=== PATIENT | female | born 1950 | race African-American/Black ===

== ENCOUNTER 2016-11-20 07:51 | Day surgery (SDC) | payer MEDICARE, BC ==
[~2016-11-20 07:51] MED LIST: EPINEPHRINE INJ/PF 1 MG/1 ML AMPULE ONE; KETOROLAC TROMETHAMINE 0.45% 4 DROP/0.4 ML DROPERETTE OS PRN; LIDOCAINE 1% INJ-PF (10 MG/ML) 30 ML SDV ONE
[2016-11-20] MEDS: TETRACAINE HCL 0.5% OPH SOLN 2 ML OS PRN ×3 (08:08→08:47)
[2016-11-20] MEDS: TROPICAMIDE 1% OPH SOLN 3 ML OS PRN ×3 (08:09→08:32)
[2016-11-20] MEDS: CYCLOPENTOLATE 0.2%/PHENYLEPHRINE 1% OPH SOLN 2 ML OS PRN ×3 (08:09→08:32)
[2016-11-20] MEDS: BESIFLOXACIN HCL 0.6% OPH SUSP 5 ML BOTTLE OS PRN ×4 (08:10→09:17)
[2016-11-20] MEDS ORDERED: MIDAZOLAM 2 MG/2 ML INJ ONE (08:34)
[2016-11-20] MEDS ORDERED: FENTANYL CITRATE INJ/PF 100 MCG/2 ML AMPUL ONE (08:34)
[2016-11-20] MEDS: CHONDR SU A NA/HYALUR INTRAOC KIT (SURGICARE) ONE ×2 (09:09)
--- NOTE | 2016-11-20 12:23 | [facility] OPERATIVE REPORT E ---
[facility] Operative Report NAME: LAURIE MCKEON AGE: 65Y DATE OF SURGERY: 11/20/2016 ROOM: PREOPERATIVE DIAGNOSIS: Cataract, left eye. POSTOPERATIVE DIAGNOSIS: Cataract, left eye. OPERATION: Cataract extraction with intraocular lens implant of the left eye. SURGEON: WANDA RAMIREZ M.D. ANESTHESIA: Topical. PROCEDURE: After obtaining appropriate consent, the patient's left eye was prepped and draped in sterile fashion as well as the surgeon in a sterile manner and cataract surgery was started. First a paracentesis blade was used to make a small side-port incision. Viscoelastic was used to inflate the anterior chamber. Next a 2.4 mm incision was made with the paracentesis blade. A continuous capsulorrhexis incision was made using a cystotome and Utrata forceps. Following this hydrodissection was carried out to make the lens fully loose and mobile and it was rotated 90 degrees. Following this, a rnyguo-otf-vzgulmk technique was used to phacoemulsify the lens with a CDE of 6.85. The remaining cortex was removed with irrigation/aspiration. Provisc was instilled into the capsular bag to inflate the bag. A SN60WF, 24.0 diopter lens was placed. The remaining viscoelastic material was removed with irrigation/aspiration. Following this, a 10-0 nylon suture was used to close the incision and it was found to be watertight. Vigamox was instilled in the eye and a protective shield was placed over the eye. The patient returned to the postoperative recovery in stable condition. DICTATING PHYSICIAN: WANDA RAMIREZ M.D. [id number] [id number] Y#: 2013 1219 ID: [id number] JOB#: [id number] ACCT: [id number] cc:WANDA RAMIREZ M.D. >
--- NOTE | 2016-11-20 12:24 | [facility] DISCHARGE SUMMARY E ---
[facility] Discharge Summary NAME: LAURIE MCKEON AGE: 65Y ADMITTED: 11/20/2016 DISCHARGED: 11/20/2016 HOSPITAL COURSE: This is a 65-year-old female who underwent cataract extraction of her left eye. DIAGNOSIS: Cataract, left eye. INDICATIONS: She underwent surgery because she was having difficulty driving at night secondary to glare from headlights. DISCHARGE INSTRUCTIONS: She should to be on a regular diet. No bending at her waist. No heavy lifting. She should use her Besivance, Ilevro, and Durezol at 3 p.m. and 8 p.m. and sleep with a rigid shield. I will see her for her 1 day postoperative tomorrow. DICTATING PHYSICIAN: WANDA RAMIREZ M.D. [id number] [id number] Y#: 2013 1219 ID: [id number] JOB#: [id number] ACCT: [id number] cc:WANDA RAMIREZ M.D. >
== END 2016-11-20 10:13 | disposition home or self-care (01) ==
LOC: SC 07:51
PROVIDERS: ATTEND Internal Medicine
PROC: 08RK3JZ Replacement of Left Lens with Synthetic Substitute, Percutaneous Approach (ICD-10-PCS; principal; 2016-11-20 09:00)
DX: H25.813 Combined forms of age-related cataract, bilateral (principal); H40.013 Open angle with borderline findings, low risk, bilateral; M19.90 Unspecified osteoarthritis, unspecified site; M81.0 Age-related osteoporosis without current pathological fracture; Z87.891 Personal history of nicotine dependence; Z88.5 Allergy status to narcotic agent; Z79.899 Other long term (current) drug therapy; Z79.82 Long term (current) use of aspirin; Z79.1 Long term (current) use of non-steroidal anti-inflammatories (NSAID)
CPT/HCPCS: 66984; V2632; J2250; J3490 ×2; A9270; J0171; J3010; 142

== ENCOUNTER 2016-12-13 06:31 | Day surgery (SDC) | payer MEDICARE, BC ==
[~2016-12-13 06:31] MED LIST changes: -EPINEPHRINE INJ/PF 1 MG/1 ML AMPULE ONE; -KETOROLAC TROMETHAMINE 0.45% 4 DROP/0.4 ML DROPERETTE OS PRN; -LIDOCAINE 1% INJ-PF (10 MG/ML) 30 ML SDV ONE; +MIDAZOLAM 2 MG/2 ML INJ ONE
[2016-12-13] MEDS: CYCLOPENTOLATE 0.2%/PHENYLEPHRINE 1% OPH SOLN 2 ML OD PRN ×3 (06:50→07:11)
[2016-12-13] MEDS: TROPICAMIDE 1% OPH SOLN 3 ML OD PRN ×3 (06:50→07:11)
[2016-12-13] MEDS: BESIFLOXACIN HCL 0.6% OPH SUSP 5 ML BOTTLE OD PRN ×4 (06:50→07:59)
[2016-12-13] MEDS: TETRACAINE HCL 0.5% OPH SOLN 2 ML OD PRN ×3 (06:51→07:33)
[2016-12-13] MEDS: KETOROLAC TROMETHAMINE 0.45% 4 DROP/0.4 ML DROPERETTE OD PRN ×2 (06:51→08:25)
[2016-12-13] MEDS ORDERED: EPINEPHRINE INJ/PF 1 MG/1 ML AMPULE ONE (07:13)
[2016-12-13] MEDS ORDERED: LIDOCAINE 1% INJ-PF (10 MG/ML) 30 ML SDV ONE (07:14)
[2016-12-13] MEDS ORDERED: CHONDR SU A NA/HYALUR INTRAOC KIT (SURGICARE) ONE (07:14)
--- NOTE | 2016-12-13 19:48 | [facility] OPERATIVE REPORT E ---
[facility] Operative Report NAME: LUARIE MCKEON AGE: 66Y DATE OF SURGERY: 12/13/2016 ROOM: PREOPERATIVE DIAGNOSIS: CATARACT, RIGHT EYE. POSTOPERATIVE DIAGNOSIS: CATARACT, RIGHT EYE. OPERATION: Cataract extraction with intraocular lens implant of the right eye. SURGEON: WANDA RAMIREZ M.D. ANESTHESIA: Topical. PROCEDURE: After obtaining appropriate consent, the patient's right eye was prepped and draped in sterile fashion as well as the surgeon in a sterile manner and cataract surgery was started. First a paracentesis blade was used to make a small side-port incision. Viscoelastic was used to inflate the anterior chamber. Next a 2.4 mm incision was made with the paracentesis blade. A continuous capsulorrhexis incision was made using a cystotome and Utrata forceps. Following this hydrodissection was carried out to make the lens fully loose and mobile and it was rotated 90 degrees. Following this, a oixfib-vlq-aycafmd technique was used to phacoemulsify the lens with a CDE of 6.34. The remaining cortex was removed with irrigation/aspiration. Provisc was instilled into the capsular bag to inflate the bag. A SN60WF, 22.0 diopter lens was placed. The remaining viscoelastic material was removed with irrigation/aspiration. Following this, a 10-0 nylon suture was used to close the incision and it was found to be watertight. Vigamox was instilled in the eye and a protective shield was placed over the eye. The patient returned to the postoperative recovery in stable condition. DICTATING PHYSICIAN: WANDA RAMIREZ M.D. [id number] PHY#: [id number] ID: [id number] JOB#: [id number] ACCT: [id number] cc:WANDA RAMIREZ M.D. >
--- NOTE | 2016-12-13 19:51 | DISCHARGE SUMMARY E ---
Discharge Summary NAME: LAURIE MCKEON : 1950 AGE: 66Y ADMITTED: 12/13/2016 DISCHARGED: 12/13/2016 This is a 66-year-old female who underwent cataract extraction of the right eye. DIAGNOSIS: Cataract, right eye. She underwent surgery because she was having trouble seeing road signs. DISCHARGE INSTRUCTIONS: She is to be on a regular diet. No bending at her waist, no heavy lifting. She is to use Besivance, Ilevro, and Durezol at 3:00 p.m. and 8:00 p.m., and sleep with a rigid shield. I will see her for her one day postoperative tomorrow. DICTATING PHYSICIAN: WANDA RAMIREZ M.D. [id number] PHY#: [id number] ID: [id number] JOB#: [id number] ACCT: [id number] cc:WANDA RAMIREZ M.D. >
== END 2016-12-13 08:43 | disposition home or self-care (01) ==
LOC: SC 06:31
PROVIDERS: ATTEND Internal Medicine
PROC: 08RJ3JZ Replacement of Right Lens with Synthetic Substitute, Percutaneous Approach (ICD-10-PCS; principal; 2016-12-13 07:30)
DX: H25.811 Combined forms of age-related cataract, right eye (principal); M19.90 Unspecified osteoarthritis, unspecified site; H40.013 Open angle with borderline findings, low risk, bilateral; Z96.659 Presence of unspecified artificial knee joint; Z79.1 Long term (current) use of non-steroidal anti-inflammatories (NSAID)
CPT/HCPCS: 66984; V2632; J2250; J3490 ×2; A9270; J0171; 142

== ENCOUNTER → 2018-03-14 | Outpatient (CLI) | payer MEDICARE, BC ==
--- NOTE | 2018-03-17 10:42 | WOMENS IMAGING REPORT ---
EXAM DESCRIPTION: 3D SCREENING MAMMO BILAT COMPLETED DATE/TIME: 03/17/2018 8:44 am REASON FOR STUDY: BILATERAL MAMMO SCREENING 3D/Z12.31 Z12.31 ENCNTR SCREEN MAMMOGRAM FOR MALIGNANT NEOPLASM OF NERI COMPARISON: Multiple since 2008 TECHNIQUE: Standard craniocaudal and mediolateral oblique views of each breast recorded using digita l acquisition and breast tomosynthesis. LIMITATIONS: None. FINDINGS: RIGHT BREAST MASSES: No suspicious masses. CALCIFICATIONS: No new or suspicious calcifications. ARCHITECTURAL DISTORTION: None. DEVELOPING DENSITY: None. ASYMMETRY: None noted. OTHER: No other significant findings. LEFT BREAST MASSES: In the left mid breast central retroareolar region, a 1.5 cm well-circumscribed mammographic nodule is present likely a breast parenchymal cyst. This requires further evaluation with breast sharri gnostic ultrasound. CALCIFICATIONS: In the far deep lateral left breast 2 to 3 o'clock position 7 cm from the nipple, new calcifications are present which require follow-up with exaggerated craniocaudad view 90 mediolater al view cone compression views. ARCHITECTURAL DISTORTION: None. DEVELOPING DENSITY: None. ASYMMETRY: None noted. OTHER: No other significant findings. Read with the assistance of CAD. .[facility] - R2 Cenova Version 1.3 .[facility] - R2 Cenova Version 1.3 .[facility] - R2 Cenova Version 2.4 .[facility] - R2 Cenova Version 2.4 .[facility] - R2 Management Accountant Version 9.2 IMPRESSION: No mammographic or tomosynthesis evidence for malignancy right breast. Calcifications left breast laterally for which additional magnification compression views are recomme nded and left breast 90 mediolateral view. Well-circumscribed low-density mammographic nodule left breast centrally for which ultrasound is terry mmended for followup BREAST DENSITY: b. There are scattered areas of fibroglandular density. BIRAD: 0 Incomplete: Needs Additional Imaging Evaluation and/or prior Mammograms for Comparison. RECOMMENDATION: RECOMMENDED FOLLOW-UP: Left breast ultrasound, left breast diagnostic mammograms The patient will be contacted for additional imaging. COMMENT: The patient has been notified of the results by letter per [place] requirements. Additional no tification policies are in place for contacting patient with suspicious or incomplete findings. Quality ID #225: The [employer] recommends an annual screening mammogram for women aged 40 years or over. This facility utilizes a reminder system to ensure that all patients receive reminder letters, and/or direct phone calls for appointments. This includes reminders for routine scr eening mammograms, diagnostic mammograms, or other Breast Imaging Interventions when appropriate. Th is patient will be placed in the appropriate reminder system. The [employer] (ACR) has developed recommendations for screening MRI of the breast s in certain patient populations, to be used in conjunction with mammography. Breast MRI surveillanc e may be appropriate for women with more than 20% lifetime risk of developing breast cancer as deter mined by genetic testing, significant family history of the disease, or history of mantle radiation f or Hodgkins Disease. ACR Practice Guidelines 2008. DBT Technology DBT is a type of tomographic mammography. With conventional mammography, overlapping breast tissue ma y make lesions difficult to detect, even with good compression. DBT uses an x-ray tube that rotates a round the breast, taking images at different angles. These images are then combined to create thin sl ices of the breast that the radiologist can view as a 3D reconstruction. The [employer]ika unit can perform full-field digital mammograms (2D imaging); or DBT (3D imaging); or both, in a combination mode that quickly performs both the mammogram and the tomosynthesis scan while the breast is still compressed. PQRS 6045F: Fluoroscopic imaging is not utilized for breast tomosynthesis. TECHNICAL DOCUMENTATION: FINDING NUMBER: (1) ASSESSMENT: (1) JOB ID: [id number] [employer]- All Rights Reserved Reading location - IP/workstation name: [email or web address]
== END ==
LOC: WI 14:00
PROVIDERS: ATTEND Specialist
DX: Z12.31 Encounter for screening mammogram for malignant neoplasm of breast (principal)
CPT/HCPCS: 77063; 77067

== ENCOUNTER → 2018-03-31 | Outpatient (CLI) | payer MEDICARE, BC ==
--- NOTE | 2018-03-31 17:08 | WOMENS IMAGING REPORT ---
EXAM DESCRIPTION: LEFT DIAGNOSTIC MAMMO W/CAD; U/S BREAST UNILAT LIMITED COMPLETED DATE/TIME: 03/31/2018 9:31 am; 03/31/2018 9:19 am REASON FOR STUDY: LLIQ;N63.24; LEFT BREAST U/S; N63.24 N63.21 UNSPECIFIED LUMP IN THE LEFT BREAST, UPPER OUTER QUAD N63.24 UNSPECIFIED LUMP IN THE LEFT BREAST, LOWER INNER QUAD COMPARISON: Multiple since 2008 TECHNIQUE: Standard craniocaudal and mediolateral oblique images of the breast recorded with digital acquisition. Additional left breast compression magnification views in the MLO, 90 mediolateral, craniocaudad and exaggerated craniocaudad orientations CT. Additional left breast ultrasound. LIMITATIONS: None. FINDINGS: BREAST: Left MASSES: No persistent mass in the deep central retroareolar region on today's follow-up cone compress ion magnification views CALCIFICATIONS: Dense benign appearing calcifications in the far left lateral deep breast just ventra l to the pectoralis muscle. It ARCHITECTURAL DISTORTION: None. DEVELOPING DENSITY: None. ASYMMETRY: None noted. OTHER: No other significant findings. Read with the assistance of CAD. .[facility] - R2 Cenova Version 1.3 .[facility] Imaging - R2 Cenova Version 1.3 .[facility] Imaging - R2 Cenova Version 2.4 .[facility] [place] R2 Cenova Version 2.4 .[facility] - R2 Clearance Coordinator Version 9.2 Left breast ultrasound: Ultrasound of the left breast central retroareolar and upper half was performed. No discrete cystic or solid lesions. No dilated ducts. No worrisome acoustic absorption. No focal findings. IMPRESSION: No mammographic or sonographic evidence for malignancy left breast BREAST DENSITY: c. The breasts are heterogeneously dense, which may obscure small masses. BIRAD: 2 Benign findings. RECOMMENDATION: RECOMMENDED FOLLOW UP: Please continue yearly bilateral screening tomosynthesis in A ust 2019 SPECIFIC INTERVENTION/IMAGING/CONSULTATION RECOMMENDED:No additional intervention/ imaging/consultati on needed at this time. COMMUNICATION:Patient notified by letter COMMENT: The patient has been notified of the results by letter per MQSA requirements. Additional no tification policies are in place for contacting patient with suspicious or incomplete findings. Quality ID #225: The [employer] recommends an annual screening mammogram for women aged 40 years or over. This facility utilizes a reminder system to ensure that all patients receive reminder letters, and/or direct phone calls for appointments. This includes reminders for routine scr eening mammograms, diagnostic mammograms, or other Breast Imaging Interventions when appropriate. Th is patient will be placed in the appropriate reminder system. The [employer] (ACR) has developed recommendations for screening MRI of the breast s in certain patient populations, to be used in conjunction with mammography. Breast MRI surveillanc e may be appropriate for women with more than 20% lifetime risk of developing breast cancer as deter mined by genetic testing, significant family history of the disease, or history of mantle radiation f or Hodgkins Disease. ACR Practice Guidelines 2008. TECHNICAL DOCUMENTATION: FINDING NUMBER: (1) ASSESSMENT: (1) JOB ID: [id number] [employer]- All Rights Reserved Reading location - IP/workstation name: [facility]-[email or web address]
--- NOTE | 2018-03-31 17:08 | WOMENS IMAGING REPORT ---
EXAM DESCRIPTION: LEFT DIAGNOSTIC MAMMO W/CAD; U/S BREAST UNILAT LIMITED COMPLETED DATE/TIME: 03/31/2018 9:31 am; 03/31/2018 9:19 am REASON FOR STUDY: LLIQ;N63.24; LEFT BREAST U/S; N63.24 N63.21 UNSPECIFIED LUMP IN THE LEFT BREAST, UPPER OUTER QUAD N63.24 UNSPECIFIED LUMP IN THE LEFT BREAST, LOWER INNER QUAD COMPARISON: Multiple since 2008 TECHNIQUE: Standard craniocaudal and mediolateral oblique images of the breast recorded with digital acquisition. Additional left breast compression magnification views in the MLO, 90 mediolateral, craniocaudad and exaggerated craniocaudad orientations CT. Additional left breast ultrasound. LIMITATIONS: None. FINDINGS: BREAST: Left MASSES: No persistent mass in the deep central retroareolar region on today's follow-up cone compress ion magnification views CALCIFICATIONS: Dense benign appearing calcifications in the far left lateral deep breast just ventra l to the pectoralis muscle. It ARCHITECTURAL DISTORTION: None. DEVELOPING DENSITY: None. ASYMMETRY: None noted. OTHER: No other significant findings. Read with the assistance of CAD. .[facility] - R2 Cenova Version 1.3 .[facility] Imaging - R2 Cenova Version 1.3 .[facility] Imaging - R2 Cenova Version 2.4 .[facility] - R2 Cenova Version 2.4 .[facility] - R2 Feeder Driver Version 9.2 Left breast ultrasound: Ultrasound of the left breast central retroareolar and upper half was performed. No discrete cystic or solid lesions. No dilated ducts. No worrisome acoustic absorption. No focal findings. IMPRESSION: No mammographic or sonographic evidence for malignancy left breast BREAST DENSITY: c. The breasts are heterogeneously dense, which may obscure small masses. BIRAD: 2 Benign findings. RECOMMENDATION: RECOMMENDED FOLLOW UP: Please continue yearly bilateral screening tomosynthesis in A ust 2019 SPECIFIC INTERVENTION/IMAGING/CONSULTATION RECOMMENDED:No additional intervention/ imaging/consultati on needed at this time. COMMUNICATION:Patient notified by letter COMMENT: The patient has been notified of the results by letter per MQSA requirements. Additional no tification policies are in place for contacting patient with suspicious or incomplete findings. Quality ID #225: The [employer] recommends an annual screening mammogram for women aged 40 years or over. This facility utilizes a reminder system to ensure that all patients receive reminder letters, and/or direct phone calls for appointments. This includes reminders for routine scr eening mammograms, diagnostic mammograms, or other Breast Imaging Interventions when appropriate. Th is patient will be placed in the appropriate reminder system. The [employer] (ACR) has developed recommendations for screening MRI of the breast s in certain patient populations, to be used in conjunction with mammography. Breast MRI surveillanc e may be appropriate for women with more than 20% lifetime risk of developing breast cancer as deter mined by genetic testing, significant family history of the disease, or history of mantle radiation f or Hodgkins Disease. ACR Practice Guidelines 2008. TECHNICAL DOCUMENTATION: FINDING NUMBER: (1) ASSESSMENT: (1) JOB ID: [id number] [employer]- All Rights Reserved Reading location - IP/workstation name: [facility]-[email or web address]
== END ==
LOC: WI 08:19
PROVIDERS: ATTEND Specialist
DX: N63.42 Unspecified lump in left breast, subareolar (principal)
CPT/HCPCS: 76642

== ENCOUNTER 2019-01-26 09:44 | Emergency (ER) | payer MEDICARE, BC ==
--- NOTE | 2019-01-26 10:04 | ER Document Report ---
ED Medical Screen (RME) - General Chief Complaint: Chest Pain Stated Complaint: CHEST PAIN Time Seen by Provider: 01/26/19 10:01 Primary Care Provider: JUDY AYALA MD [Primary Care Provider] - Follow up as needed TRAVEL OUTSIDE OF THE [place] IN LAST 30 DAYS: No - HPI Notes: 01/26/19 10:03 Patient is a 68-year-old female with history of osteoporosis and on Boniva who presents complaining of right-sided chest pain that is been present for the past 3 weeks. Patient states that the pain is still lingering in that area and does not radiate. She is able to perform her ADLs without difficulty. She is eating and drinking without difficulty. She is urinating normally and having normal bowel movements. Denies drug allergies. No significant cardiopulmonary medical history. Denies any prolonged immobilization, distance travel, recent surgery/trauma, personal cancer history, smoking, or previous DVT/PE. Denies SEVILLA, fever, neck pain, URI, SOB, Abd pain, n/v/d, dysuria, back pain, or rash. I have treated and performed a rapid initial assessment of this patient. A comprehensive ED assessment and evaluation of the patient, analysis of test results and completion of medical decision making process will be conducted by additional ED providers. PHYSICAL EXAMINATION: GENERAL: Well-appearing, well-nourished and in no acute distress. A&Ox4. Answers questions appropriately. LUNGS: Breath sounds clear to auscultation bilaterally and equal. No wheezes rales or rhonchi. HEART: Regular rate and rhythm without murmurs, rubs, gallops. Extremities: No cyanosis, clubbing, or edema b/l. No lower extremity asymmetry. Jerrica negative bilaterally. NEUROLOGICAL: Normal speech, normal gait. PSYCH: Normal mood, normal affect. - Related Data Allergies/Adverse Reactions: No Known Allergies Allergy (Verified 12/13/16 06:43) Past Medical History - Past Medical History Cardiac Medical History: Denies: Hx Heart Attack, Hx Hypertension Pulmonary Medical History: Denies: Hx Asthma Neurological Medical History: Denies: Hx Cerebrovascular Accident, Hx Seizures GI Medical History: Reports: Hx Hepatitis - HEP A YEARS AGO 1969. Denies: Hx Hiatal Hernia, Hx Ulcer Musculoskeltal Medical History: Reports Hx Arthritis Infectious Medical History: Reports: Hx Hepatitis - HEP A YEARS AGO 1970 Past Surgical History: Reports: Hx Oral Surgery, Hx Orthopedic Surgery - rt knee replacement, Hx Tonsillectomy. Denies: Hx Hysterectomy, Hx Mastectomy, Hx Open Heart Surgery, Hx Pacemaker - Immunizations Hx Diphtheria, Pertussis, Tetanus Vaccination: - unknown Physical Exam - Vital signs Vitals: Temp Pulse Resp BP Pulse Ox 98.1 F 62 16 146/92 H 98 01/26/19 09:58 01/26/19 09:58 01/26/19 09:58 01/26/19 09:58 01/26/19 09:58 Course - Vital Signs Vital signs: Temp Pulse Resp BP Pulse Ox 98.1 F 62 16 146/92 H 98 01/26/19 09:58 01/26/19 09:58 01/26/19 09:58 01/26/19 09:58 01/26/19 09:58 Doctor's Discharge - Discharge Referrals: JUDY AYALA MD [Primary Care Provider] - Follow up as needed
--- NOTE | 2019-01-26 10:21 | ER Document Report ---
ED General - General Chief Complaint: Chest Pain Stated Complaint: CHEST PAIN Time Seen by Provider: 01/26/19 10:01 Primary Care Provider: BIN GONZALEZ MD [ACTIVE STAFF] - Follow up tomorrow JUDY AYALA MD [ACTIVE STAFF] - Follow up as needed Notes: Patient is a 68-year-old female that presents to the emergency department for chief complaint of chest pain. The patient reports that the pain started about 2 weeks ago. The currently rate the pain as 0 out of 10, and described as achiness, occasionally sharp and heaviness in the right chest, when she is having it, it is intermittent. Denies any shortness of breath, nausea, vomiting or diaphoresis, pain is not worse with a deep breath. Their risk factors for heart disease include age, she is a non-smoker, no history of hypertension, diabetes, hyperlipidemia. Past Medical History: Osteoporosis Past Surgical History: Bilateral total knee arthroplasties Social History: Denies tobacco, alcohol or drug use. Family History: Reviewed and noncontributory for presenting illness Allergies: Reviewed, see documented allergy list. REVIEW OF SYSTEMS: Other than noted above, the 12 point review of systems was reviewed with the patient and were negative, all pertinent findings are included in the HPI. PHYSICAL EXAMINATION: Vital signs reviewed, nursing noted reviewed. GENERAL: Well-appearing, well-nourished and in no acute distress. HEAD: Atraumatic, normocephalic. EYES: Eyes appear normal, extraocular movements intact, sclera anicteric, conjunctiva are normal. ENT: nares patent, oropharynx clear without exudates. Moist mucous membranes. NECK: Normal range of motion, supple without lymphadenopathy LUNGS: Breath sounds clear to auscultation bilaterally and equal. No wheezes rales or rhonchi. HEART: Regular rate and rhythm without murmurs ABDOMEN: Soft, nontender, normoactive bowel sounds. No rebound, guarding, or rigidity. No masses appreciated. EXTREMITIES: Nontender, good range of motion, no pitting or edema. NEUROLOGICAL: No focal neurological deficits. Moves all extremities spontaneously Motor and sensory grossly intact on exam. PSYCH: Normal mood, normal affect. SKIN: Warm, Dry, normal turgor, no rashes or lesions noted on exposed skin TRAVEL OUTSIDE OF THE [place] IN LAST 30 DAYS: No - Related Data Allergies/Adverse Reactions: No Known Allergies Allergy (Verified 01/26/19 10:57) Past Medical History - Social History Smoking Status: Former Smoker Frequency of alcohol use: None Drug Abuse: None Family History: Reviewed & Not Pertinent Patient has suicidal ideation: No Patient has homicidal ideation: No - Past Medical History Cardiac Medical History: Denies: Hx Heart Attack, Hx Hypertension Pulmonary Medical History: Denies: Hx Asthma Neurological Medical History: Denies: Hx Cerebrovascular Accident, Hx Seizures Renal/ Medical History: Denies: Hx Peritoneal Dialysis GI Medical History: Reports: Hx Hepatitis - HEP A YEARS AGO 1969. Denies: Hx Hiatal Hernia, Hx Ulcer Musculoskeletal Medical History: Reports Hx Arthritis Infectious Medical History: Reports: Hx Hepatitis - HEP A YEARS AGO 1969 Past Surgical History: Reports: Hx Oral Surgery, Hx Orthopedic Surgery - rt knee replacement, Hx Tonsillectomy. Denies: Hx Hysterectomy, Hx Mastectomy, Hx Open Heart Surgery, Hx Pacemaker - Immunizations Hx Diphtheria, Pertussis, Tetanus Vaccination: - unknown Physical Exam - Vital signs Vitals: Temp Pulse Resp BP Pulse Ox 98.1 F 62 16 146/92 H 98 01/26/19 09:58 01/26/19 09:58 01/26/19 09:58 01/26/19 09:58 01/26/19 09:58 Course - Re-evaluation Re-evalutation: Patient seen and examined vital signs reviewed. Laboratory data and/or imaging were ordered as appropriate for the patient's presenting symptoms and complaint, with consideration of any critical or life threatening conditions that may be associated with their obtained history and exam as noted above. Patient was treated with aspirin Results were reviewed when available and demonstrated negative troponin testing, EKG was unremarkable, and nonischemic, chest x-ray negative, blood work otherwise unremarkable as well. The patient was re-evaluated and was stable, chest pain-free, despite the patient age, she has no risk factors for heart disease, her troponin is negative, and her history is very atypical, and her heart score as a result is 3, repeat troponin was ordered and was negative Evaluation was most consistent with chest pain, etiology unclear, unlikely cardiac in nature, advised follow-up with PCP and cardiology for possible stress testing. Results were discussed with the patient at this point, after careful consideration I feel that that patient can be discharged from the emergency department, the patient was educated treatments and reasons to return to the emergency department based on their presumed diagnosis as noted above, they were advised to followup with a primary care physician in 2-3 days. Patient was agreeable to plan of care. *Note is created using voice recognition software and may contain spelling, syntax or grammatical errors. Laboratory 01/26/19 01/26/19 01/26/19 05:41 10:12 10:12 WBC 5.3 RBC 4.62 Hgb 12.6 Hct 37.8 MCV 82 MCH 27.3 MCHC 33.3 RDW 13.5 Plt Count 276 Seg Neutrophils % 55.2 Lymphocytes % 34.5 Monocytes % 8.0 Eosinophils % 1.5 Basophils % 0.8 Absolute Neutrophils 2.9 Absolute Lymphocytes 1.8 Absolute Monocytes 0.4 Absolute Eosinophils 0.1 Absolute Basophils 0.0 PT 12.6 INR 0.89 Sodium 140.8 Potassium 3.9 Chloride 106 Carbon Dioxide 28 Anion Gap 7 BUN 14 Creatinine 0.58 Est GFR ( Amer) > 60 Est GFR (Non-Af Amer) > 60 Glucose 97 Calcium 9.5 Total Bilirubin 1.2 Direct Bilirubin 0.3 Neonat Total Bilirubin Not Reportable Neonat Direct Bilirubin Not Reportable Neonat Indirect Bili Not Reportable AST 21 ALT 21 Alkaline Phosphatase 58 Troponin I Total Protein 7.2 Albumin 4.2 Lipase 90.2 01/26/19 10:12 WBC RBC Hgb Hct MCV MCH MCHC RDW Plt Count Seg Neutrophils % Lymphocytes % Monocytes % Eosinophils % Basophils % Absolute Neutrophils Absolute Lymphocytes Absolute Monocytes Absolute Eosinophils Absolute Basophils PT INR Sodium Potassium Chloride Carbon Dioxide Anion Gap BUN Creatinine Est GFR ( Amer) Est GFR (Non-Af Amer) Glucose Calcium Total Bilirubin Direct Bilirubin Neonat Total Bilirubin Neonat Direct Bilirubin Neonat Indirect Bili AST ALT Alkaline Phosphatase Troponin I < 0.012 Total Protein Albumin Lipase Chest X-Ray 01/26/19 10:05 IMPRESSION: NO ACUTE RADIOGRAPHIC FINDING IN THE CHEST. \ - Vital Signs Vital signs: Temp Pulse Resp BP Pulse Ox 98.3 F 63 14 110/82 97 01/26/19 14:45 01/26/19 14:45 01/26/19 14:45 01/26/19 14:45 01/26/19 14:45 - Laboratory Result Diagrams: 01/26/19 10:12 01/26/19 10:12 Discharge - Discharge Clinical Impression: Chest pain Qualifiers: Chest pain type: unspecified Qualified Code(s): R07.9 - Chest pain, unspecified Condition: Stable Disposition: HOME, SELF-CARE Instructions: Chest Pain of Unclear Cause ([facility]) Additional Instructions: Please return to the emergency department if your pain changes or worsens in any way, please follow-up with cardiology, call for an appointment either today or tomorrow, to have it set up as you will likely need a stress test. Referrals: JUDY AYALA MD [ACTIVE STAFF] - Follow up as needed BIN GONZALEZ MD [ACTIVE STAFF] - Follow up tomorrow
[2019-01-26 10:40] LABS: ABSOLUTE EOSINOPHILS # (AUTO) 0.1 10^3/uL (0.0-0.6); ABSOLUTE LYMPHOCYTES (AUTO) 1.8 10^3/uL (0.5-4.7); ABSOLUTE MONOCYTES (AUTO) 0.4 10^3/uL (0.1-1.4); ABSOLUTE NEUT (AUTO) 2.9 10^3/uL (1.7-8.2); BASOPHILS % (AUTO) 0.8 % (0-2); EOSINOPHILS % (AUTO) 1.5 % (0-6); HEMATOCRIT 37.8 % (36.0-47.0); HEMOGLOBIN 12.6 g/dL (12.0-15.5); LYMPHOCYTES % (AUTO) 34.5 % (13-45); MEAN CORPUSCULAR HEMOGLOBIN 27.3 pg (27.0-33.4); MEAN CORPUSCULAR HGB CONC 33.3 g/dL (32.0-36.0); MEAN CORPUSCULAR VOLUME 82 fl (80-97); PLATELET COUNT 276 10^3/uL (150-450); RED BLOOD COUNT 4.62 10^6/uL (3.72-5.28); RED CELL DISTRIBUTION WIDTH 13.5 % (11.5-14.0); SEGMENTED NEUTROPHILS % (AUTO) 55.2 % (42-78); TOTAL CELLS COUNTED % (AUTO) 100 %; WHITE BLOOD COUNT 5.3 10^3/uL (4.0-10.5)
[2019-01-26 10:42] LABS: INTERNATIONAL RATION (INR) 0.89; PROTHROMBIN TIME 12.6 SEC (11.4-15.4)
--- NOTE | 2019-01-26 10:47 | RADIOLOGY REPORT (SQ) ---
EXAM DESCRIPTION: CHEST 2 VIEWS COMPLETED DATE/TIME: 01/26/2019 10:33 am REASON FOR STUDY: rt side cp COMPARISON: 04/27/2008 EXAM PARAMETERS: NUMBER OF VIEWS: two views TECHNIQUE: Digital Frontal and Lateral radiographic views of the chest acquired. RADIATION DOSE: NA LIMITATIONS: none FINDINGS: LUNGS AND PLEURA: No opacities, masses or pneumothorax. No pleural effusion. MEDIASTINUM AND HILAR STRUCTURES: No masses or contour abnormalities. HEART AND VASCULAR STRUCTURES: Heart normal size. No evidence for failure. BONES: No acute findings. HARDWARE: None in the chest. OTHER: No other significant finding. IMPRESSION: NO ACUTE RADIOGRAPHIC FINDING IN THE CHEST. TECHNICAL DOCUMENTATION: JOB ID: [id number] [employer]- All Rights Reserved Reading location - IP/workstation name: [email or web address]
[2019-01-26 11:11] LABS: ALANINE AMINOTRANSFERASE 21 U/L (9-52); ALBUMIN 4.2 g/dL (3.5-5.0); ALKALINE PHOSPHATASE 58 U/L (38-126); ANION GAP 7 (5-19); ASPARTATE AMINO TRANSFERASE 21 U/L (14-36); BILIRUBIN,DIRECT 0.3 mg/dL (0.0-0.4); BILIRUBIN,TOTAL 1.2 mg/dL (0.2-1.3); BLOOD UREA NITROGEN 14 mg/dL (7-20); CALCIUM 9.5 mg/dL (8.4-10.2); CARBON DIOXIDE 28 mmol/L (22-30); CHLORIDE 106 mmol/L (98-107); GLUCOSE 97 mg/dL (75-110); LIPASE 90.2 U/L (23-300); POTASSIUM 3.9 mmol/L (3.6-5.0); SODIUM 140.8 mmol/L (137-145); TOTAL PROTEIN 7.2 g/dL (6.3-8.2)
--- NOTE | 2019-01-26 11:28 | EKG REPORT ---
SEVERITY:- NORMAL ECG - SINUS RHYTHM : Confirmed by: Carol Ann Hannah MD 26-Jan-2019 11:27:39
[2019-01-26 14:49] VITALS: BP 110/82
== END 2019-01-26 14:45 | disposition home or self-care (01) ==
LOC: ER 09:44
DX: R07.9 Chest pain, unspecified (principal); M81.0 Age-related osteoporosis without current pathological fracture; Z96.653 Presence of artificial knee joint, bilateral; Z87.891 Personal history of nicotine dependence; M19.90 Unspecified osteoarthritis, unspecified site
CPT/HCPCS: 36415; 71046; 80053; 83690; 84484; 85025; 85610; 93005; 93010; 99285